=== PATIENT | male | born 1980 | race Hispanic/Latino ===

== ENCOUNTER 2019-08-25 00:24 | Emergency (ER) | payer MEDICARE ==
[2019-08-25] MEDS ORDERED: IBUPROFEN PO ONE (00:53)
[2019-08-25] MEDS ORDERED: ZOFRAN ODT PO ONE (01:16)
[2019-08-25] MEDS ORDERED: ZOFRAN ODT ONE (01:17)
--- NOTE | 2019-08-25 01:21 | XRay Report ---
Lumbar spine 3 views INDICATION: Low back pain IMPRESSION: No fracture or subluxation. Mild L5-S1 facet type arthropathy with mild bilateral neural foraminal narrowing at this level. Signer Name: Jim Delacruz MD Signed: 08/25/2019 1:16 AM Workstation Name: [id number]
[2019-08-25] MEDS ORDERED: TORADOL ONE (01:22)
[2019-08-25] MEDS ORDERED: TORADOL IM ONE (01:26)
--- NOTE | 2019-08-25 02:07 | Cat Scan Report ---
CT head without contrast INDICATION : Headache following fall. TECHNIQUE: Axial imaging performed from the skull apex through the skull base without the use of con trast. All CT examinations performed at this facility utilize dose modulation, iterative reconstruct ion or weight-based dosing, when appropriate, to reduce radiation dose to as low as reasonably achiev able. COMPARISON: None FINDINGS: No acute intracranial hemorrhage or parenchymal abnormality. Ventricles are normal in si ze and appear symmetric. Soft tissues including the orbits appear normal. No acute osseous abnorm ality. Sinuses and mastoid air cells are clear. IMPRESSION: No acute abnormality. Signer Name: Jim Delacruz MD Signed: 08/25/2019 2:02 AM Workstation Name: [email or web address]
--- NOTE | 2019-08-25 02:19 | Emergency Department Report ---
ED Fall HPI - General Chief Complaint: Fall Stated Complaint: FALL/HEAD/LEFT SIDE PAIN Time Seen by Provider: 08/25/19 00:53 Source: patient, EMS Mode of arrival: Stretcher - History of Present Illness Initial Comments: Mr. Granados is a 38-year-old male who currently is a patient at [facility] for suicidal ideation. There is a sitter at the bedside from the facility. 10 hours prior to arrival, he slipped on the floor. There was slippery lubricant on the floor according to his report. He slipped and fell. He struck his head. He has lightheadedness and nausea. He also has left back pain as a result of fall. He is ambulatory without difficulty. He requests Toradol and Zofran for his symptoms. No LOC. MD Complaint: fall -: Sudden, hour(s) (10) Fall From: other (walking and slipped onto hard floor) When Fall Occurred: other (10 hours) Fall Witnessed: yes, by living facility s Place Fall Occurred: [facility] Loss of Consciousness: none Prolonged Down Time?: no Symptoms Prior to Fall: none Location: head, back Severity: moderate Quality: dull Context: tripped/slipped Associated Symptoms: headache - Related Data Allergies Allergy/AdvReac Type Severity Reaction Status Date / Time cefaclor Allergy Unknown Verified 08/25/19 01:17 morphine Allergy Rash Verified 08/25/19 01:06 tetanus toxoid, adsorbed Allergy Unknown Verified 08/25/19 01:06 metoclopramide [From Reglan] AdvReac Unknown Verified 08/25/19 01:06 ED Review of Systems ROS: Stated complaint: FALL/HEAD/LEFT SIDE PAIN Other details as noted in HPI Constitutional: denies: fever, malaise Respiratory: denies: shortness of breath Cardiovascular: denies: chest pain Gastrointestinal: nausea. denies: abdominal pain, vomiting Neurological: headache. denies: numbness, paresthesias ED Past Medical Hx - Past Medical History Previous Medical History?: Yes Hx Hypertension: Yes Hx Psychiatric Treatment: Yes (bipolar, depression, SI) - Surgical History Past Surgical History?: No - Social History Smoking Status: Never Smoker Substance Use Type: None ED Physical Exam - General Limitations: No Limitations General appearance: alert, in no apparent distress, other (GCS of 15 articulate particularly insightful) - Head Head exam: Present: atraumatic, normocephalic - Eye Eye exam: Present: normal appearance. Absent: scleral icterus, conjunctival injection, nystagmus - ENT ENT exam: Present: mucous membranes moist - Neck Neck exam: Present: normal inspection, full ROM. Absent: tenderness, meningismus - Respiratory Respiratory exam: Absent: respiratory distress - Extremities Exam Extremities exam: Present: normal inspection - Back Exam Back exam: Present: normal inspection, full ROM. Absent: tenderness, CVA tenderness (R), CVA tenderness (L), muscle spasm, paraspinal tenderness, vertebral tenderness - Neurological Exam Neurological exam: Present: alert, oriented X3 - Psychiatric Psychiatric exam: Present: normal affect, normal mood - Skin Skin exam: Present: warm, dry, intact, normal color ED Course Vital Signs 08/25/19 08/25/19 01:02 01:27 Temperature 98.3 F Pulse Rate 87 Respiratory 16 16 Rate Blood Pressure 128/78 O2 Sat by Pulse 99 99 Oximetry ED Medical Decision Making - Radiology Data Radiology results: report reviewed Radiology impressions: CT head without acute findings, lumbar spine radiographs without fracture or subluxation mild degenerative changes - Medical Decision Making Fall with minor head injury, lumbar strain given Toradol IM and ODT Zofran. Discharged back to [facility]. Critical care attestation.: If time is entered above; I have spent that time in minutes in the direct care of this critically ill patient, excluding procedure time. ED Disposition Clinical Impression: Minor head injury without loss of consciousness, Low back sprain, Fall Disposition: [id number]/[id number] ANOTHER TYPE HLTHCARE Is pt being admited?: No Does the pt Need Aspirin: No Condition: Stable Instructions: Minor Head Injury (ED), Acute Low Back Pain (ED)
[2019-08-25 02:45] VITALS: BP 118/74
== END 2019-08-25 02:53 | disposition other institution (70) ==
LOC: ED 00:24
DX: S39.012A Strain of muscle, fascia and tendon of lower back, initial encounter (principal); S09.90XA Unspecified injury of head, initial encounter; I10 Essential (primary) hypertension; F31.9 Bipolar disorder, unspecified; F32.9 Major depressive disorder, single episode, unspecified; Z79.899 Other long term (current) drug therapy; W01.198A Fall on same level from slipping, tripping and stumbling with subsequent striking against other object, initial encounter; Y93.01 Activity, walking, marching and hiking; Y92.89 Other specified places as the place of occurrence of the external cause; Y99.8 Other external cause status
CPT/HCPCS: 70450; 72100; 96372; 99284; J1885; Q0162